=== PATIENT | female | born 2000 | race Caucasian/White ===

== ENCOUNTER 2021-10-10 13:21 | Emergency (ER) | payer OTHER ==
[~2021-10-10] VITALS: Ht 170.2 cm; Wt 86.6 kg
[2021-10-10] MEDS ORDERED: TDAP DIPH,PERTUSS,TET VAC/PF 0.5 ML DISP.SYRIN IM ONE (13:45)
[2021-10-10] MEDS ORDERED: LIDOCAINE HCL 1% 20 ML VIAL IJ ONE (13:45)
--- NOTE | 2021-10-10 13:54 | NUR ---
MD AT BEDSIDE FOR EVALUATION
[2021-10-10] MEDS ORDERED: LIDOCAINE 1%-EPI 1:100,000 20 ML VIAL ONE (14:03)
[2021-10-10] MEDS ORDERED: LIDOCAINE HCL 1% 20 ML VIAL ONE (14:04)
--- NOTE | 2021-10-10 14:40 | NUR ---
patient tolerated suture repair, nadr, patient stable. minimal blood loss.
--- NOTE | 2021-10-10 14:53 | NUR ---
Patient discharged to home in stable condition. Written and verbal after care instructions given. Patient verbalizes understanding of instructions. Stressed follow up or return to ER for worsening s/s. PATIENT TO FOLLOW UP WITH PROVIDER TO HAVE WOUND CHECK AND FOLLOW UP 7-10 DAYS FOR SUTURE REMOVAL
[2021-10-10 14:55] VITALS: BP 104/59
== END 2021-10-10 14:55 | disposition home or self-care (01) ==
LOC: ER 13:21
DX: S61.412A Laceration without foreign body of left hand, initial encounter (principal); W26.0XXA Contact with knife, initial encounter; Y93.G9 Activity, other involving cooking and grilling; Y92.89 Other specified places as the place of occurrence of the external cause
CPT/HCPCS: 99282; 12001; J3490; A4663